=== PATIENT | male | born 1940 | race Caucasian/White ===

== ENCOUNTER 2016-08-06 14:45 | Inpatient (IN) | payer MEDICARE ==
[2016-08-06] MEDS ORDERED: Ciprofloxacin 400MG IVPREMIX(* 400 MG/200 ML BAG IVPB ONE (15:33)
[2016-08-06 16:18] LABS: Urine Bacteria Absent (Absent); Urine Bilirubin Negative (Negative); Urine Glucose Negative (Negative); Urine Nitrite Negative (Negative)
[2016-08-06 16:28] LABS: Hematocrit 24 % (42-52); Hemoglobin 8.1 g/dl (14.0-18.0); Mean Corpuscular HGB Conc 34 g/dl (31-36); Mean Corpuscular Hemoglobin 34 pg (27-31); Mean Corpuscular Volume 100 fL (80-94); Mean Platelet Volume 8 um3 (7.4-10.4); Red Cell Distribution Width 13 % (10.5-15)
[2016-08-06 17:05] LABS: Albumin 3.5 g/dL (3.2-5.2); BUN/Creatinine Ratio 8.7 (8-20); C Reactive Protein 22.77 mg/L (< 5.00); Calcium 8.8 mg/dL (8.6-10.3); EGFR African American 12.8 (>60); EGFR Non-African American 9.9 (>60); Globulin 2.9 g/dL (2-4); Magnesium 1.4 mg/dL (1.9-2.7); Potassium 4.4 mmol/L (3.5-5.0); Total Bilirubin 0.9 mg/dL (0.2-1.0); Total Protein 6.4 g/dL (6.4-8.9)
--- NOTE | 2016-08-06 17:05 | RAD ---
INDICATION: Edema COMPARISON: Chest x-ray November 12, 2006 TECHNIQUE: An AP portable view obtained at 1635 hours is submitted. FINDINGS: Bones/Soft Tissues: There are no acute bony findings. There are old left-sided rib fractures. There is sternotomy. Cardiomediastinal: The cardiomediastinal silhouette is normal. Lungs: Mild volume loss left chest with chronic pleural changes. Left-sided diaphragmatic calcifications. Pleura: There are no pleural effusions. Other: None IMPRESSION: CHRONIC PLEURAL AND PARENCHYMAL CHANGES LEFT HEMITHORAX. NO ACUTE FINDINGS.
[2016-08-06 17:06] LABS: Troponin I 0.03 ng/mL (<0.04)
[2016-08-06 17:11] LABS: TSH (Thyroid Stimulating Horm) 6.28 mcIU/mL (0.34-5.60)
[2016-08-06] MEDS ORDERED: Acetaminophen TAB* 325 MG PO PRN (18:09)
[2016-08-06] MEDS ORDERED: Magnesium Sulfate 2 GM IV* 2 GM/50 ML BAG IVPB ONE (19:13)
[2016-08-06] MEDS: NS 0.9% 1000 ML* 1,000 ML IV SCH (19:46)
[2016-08-06] MEDS ORDERED: Enoxaparin(*) 30 MG/0.3 ML SYR SUBCUT SCH (20:00)
[2016-08-06 20:18] LABS: Free T4 0.79 ng/dL (0.61-1.12)
--- NOTE | 2016-08-06 20:44 | HP ---
ADMISSION HISTORY AND PHYSICAL: DATE OF ADMISSION: 08/06/16 PRIMARY CARE PROVIDER: Unknown. UROLOGIST: Dr. Felipe. ADMITTING PROVIDER: LISA Jasmine. SUPERVISING PROVIDER: Austyn Mcneil MD.* (DICTATED BY LISA JASMINE) CHIEF COMPLAINT: Distended bladder, referred by Dr. Felipe. HISTORY OF PRESENT ILLNESS: This is a 76-year-old gentleman with a history of coronary artery disease status post CABG in 1975 as well as BPH and diet controlled diabetes who presented to Dr. eFlipe's office for a routine followup earlier today and was found to have significant urinary retention and referred to the emergency department for further evaluation. Williamson catheter was placed and a total of 3 L of urine was found to be in the bladder. The patient states that he has been largely asymptomatic despite this significant finding other than a bloated sensation. He has still been urinating frequently but noted a decreased flow. He denies any recent illnesses. Denies fevers, nausea, vomiting or diarrhea. Denies chest pain or difficulty breathing. He does have some intermittent lower extremity swelling over the last couple of months. The patient has been seen by Dr. Felipe in the past and undergone prostate biopsies in the past. It sounds like maybe at one point, he was also treated for prostatitis. Biopsies were benign, a diagnosis of BPH seemed to be appropriate. PAST MEDICAL HISTORY: 1. BPH. 2. Diet controlled diabetes. 3. Coronary artery disease, status post CABG, 1975. PAST SURGICAL HISTORY: 1. CABG, 1975. 2. Total knee arthroplasty. HOME MEDICATIONS: 1. Aspirin 325 mg p.o. daily. 2. Atorvastatin 20 mg p.o. daily. 3. Coenzyme Q10 at 400 mg p.o. daily. 4. Finasteride 5 mg p.o. daily. 5. Padroni-3 fatty acids 1000 mg p.o. daily. 6. Flomax 0.4 mg p.o. daily. SOCIAL HISTORY: The patient is . He quit smoking in 1982 with a 20- pack- year smoking history. He consumes between 1-1/2 and 2 bottles of wine nightly. He has had periods of sobriety without significant withdrawal. He recognizes that the volume is too great. Denies illicit drug use and lives alone. REVIEW OF SYSTEMS: As listed above in the HPI and otherwise negative. PHYSICAL EXAMINATION GENERAL: This is a pleasant elderly male in no acute distress, slightly unkempt appearance. VITAL SIGNS: Temperature 98.4 degrees Fahrenheit, pulse 76 beats per minute, respiratory rate of 18 per minute, oxygen saturation is 100% on room air, blood pressure 178/81 mmHg. HEENT: Head is normocephalic and atraumatic. Mucous membranes are pink and moist. Dentition is poor. RESPIRATORY: Lungs clear to auscultation without wheezes, crackles or rhonchi. CARDIOVASCULAR: Heart has a regular rate and rhythm without murmurs, rubs or gallops. ABDOMEN: Soft and nontender to palpation. PSYCH: The patient is alert and appropriately oriented. DIAGNOSTIC STUDIES/LAB DATA: CBC shows a white blood cell count of 4000, hemoglobin of 8.1 g/dL and platelet count of 124,000. Comprehensive metabolic panel is significant for sodium of 125 mmol/L, normal potassium of 4.4, serum bicarb of 18, anion gap of 16, BUN of 49, creatinine of 5.62. Random glucose of 112 mg/dL. Magnesium low at 1.4. Transaminases and total bilirubin within normal limits. Troponin is negative at 0.003. CRP 22.7. BNP mildly elevated at 461. TSH mildly elevated at 6.28. PSA surprisingly is only 1.3. Urinalysis is positive for 1+ blood and otherwise unremarkable. IMAGING: Chest x-ray shows some chronic pleural and parenchymal changes in the left hemithorax. No acute findings, however. ASSESSMENT AND PLAN: This is a 76-year-old gentleman with history of benign prostatic hyperplasia, diet controlled diabetes and coronary artery disease who presents with what sounds like chronic urinary retention secondary to benign prostatic hyperplasia as well as acute kidney failure. 1. Urinary retention. This is likely chronic in nature based on his symptoms and history and secondary to benign prostatic hyperplasia. No signs of urinary tract infection based on urinalysis. Williamson catheter is in place. Urine appears bloody at this time, likely due to traumatic catheterization based on the size of his prostate. I anticipate that the patient will likely require a Williamson catheter indefinitely. He has been on Flomax and finasteride for quite sometime and has been compliant with these medications. 2. Acute kidney failure. Added on urine sodium and creatinine to help calculate FENa but assume that his acute kidney failure is secondary to distal obstruction and subsequent urinary retention. We will avoid nephrotoxic agents, provide light IV hydration and recheck labs in the morning. 3. Hypomagnesemia. We will replace IV. 4. Elevated TSH. We will plan to check a free T4 and likely start low dose of levothyroxine. 5. Diet controlled diabetes. We will check hemoglobin A1c and if within normal limits, the patient does not require glucose monitoring during his hospital stay. 6. History of coronary artery disease without acute coronary syndrome. Continue aspirin and statin. 7. Code status. The patient is full code. 8. DVT prophylaxis. The patient will be started on heparin subcu. We will avoid enoxaparin in the setting of acute kidney failure. 9. Healthcare proxy is unknown. 10. Disposition. The patient is being admitted to the hospital for acute kidney injury and urinary retention. Anticipated length of stay is greater than 2 midnights. LISA JASMINE CC: Dr. Felipe* [id number]/[facility] #: [id number] MTDD
[2016-08-06] MEDS: Heparin VIAL(*) 5000 UNITS/ML VIAL (FIVE THOUSAND) SUBCUT SCH (23:39)
--- NOTE | 2016-08-07 00:06 | ED ---
IWilbur,Lani, scribed for Richard Brown MD on 08/06/16 at 1538 . GI/ HPI - HPI Summary HPI Summary: This 76 y/o male presents to ED from Dr. Felipe's office for 3 L of fluid in bladder that was noted today in office. Brother present at bedside also reports worsening PVD at BLE with increased swelling and difficulty with ambulation. Pt himself denies any abd pain, dysuria, or leg pain, but reports decreased urinary output when he does go to urinate and BLE weakness. He was at Dr. Felipe's office for f/u appointment for his prostatitis. 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 Pt admits that he hasn't been consistent with following up for diuretic medications due to trouble getting to Dr. Felipe's office. - History of Current Complaint Stated Complaint: BOTH LEGS SWOLLEN/UNABLE TO WALK Hx Obtained From: Patient, Family/[employer] Controls Engineer - brother present at bedside, Medical Records Onset/Duration: Started Days Ago, Atraumatic, Still Present Timing: Constant Severity: Mild Current Severity: Moderate Location of Pain: None Associated Signs and Symptoms: Positive: Other: - Abd bloating. Decreased urinary output when urinates. Negative: Fever, Dysuria, Abdominal Pain, Chest Pain - Allergy/Home Medications Allergies/Adverse Reactions: Allergies Allergy/AdvReac Type Severity Reaction Status Date / Time No Known Allergies Allergy Verified 07/29/13 10:04 Home Medications: Home Medications Aspirin TAB* 325 mg PO DAILY 08/06/16 [History Confirmed 08/06/16] Atorvastatin* [Lipitor*] 20 mg PO DAILY 08/06/16 [History Confirmed 08/06/16] Coenzyme Q10 (Ubidecarenone) [Co Q-10] 400 mg PO DAILY 08/06/16 [History Confirmed 08/06/16] Finasteride TAB* [Proscar TAB*] 5 mg PO DAILY 08/06/16 [History Confirmed ] Diamond-3 Fatty Acids (Nf) [Fish Oil (NF)] 1,000 mg PO DAILY 08/06/16 [History Confirmed 08/06/16] Tamsulosin CAP* [Flomax CAP*] 0.4 mg PO DAILY 08/06/16 [History Confirmed ] PMH/Surg Hx/FS Hx/Imm Hx Endocrine/Hematology History: Denies: Hx Diabetes Cardiovascular History: Reports: Hx Hypertension - ON MEDS Denies: Hx Pacemaker/ICD History: Denies: Hx Renal Disease Sensory History: Denies: Hx Hearing Aid Psychiatric History: Denies: Hx Panic Disorder - Surgical History Surgery Procedure, Year, and Place: 1989 ACOUSTIC NEOROMA ON RIGHT, CABG 11/1977 SINGLE BYPASS, KNEE REPLACEMENT 2007 RIGHT, HERNIA 2001 - Family History Known Family History: Positive: Diabetes - Social History Alcohol Use: None Hx Substance Use: No Substance Use Type: Reports: None Hx Tobacco Use: No Smoking Status (MU): Never Smoked Tobacco Review of Systems Negative: Fever Positive: Other - right eye with more droop than left eye, chronic. Negative: Erythema Positive: Other - right ear without hearing. Negative: Sore Throat Negative: Chest Pain Positive: Cough - mild, nonproductive Positive: Other - abd bloating. Negative: Abdominal Pain Positive: other - decreased urinary output. Negative: dysuria, pain Positive: Other - Venous changes with BLE ankle secondary to PVD. Negative: Myalgia Negative: Rash Positive: Weakness - trouble walking Negative: Anxious, Depressed All Other Systems Reviewed And Are Negative: Yes Physical Exam - Summary Physical Exam Summary: Constitutional: Well-developed, Well-nourished, Alert. (-) Distressed Skin: Warm, Dry HENT: Normocephalic; Atraumatic. Right ear without hearing. Eyes: Conjunctiva normal. (+) Right eye with chronic ptosis. Neck: Musculoskeletal ROM normal neck. (-) JVD, (-) Stridor, (-) Tracheal deviation Cardio: Rhythm regular, rate normal, Heart sounds normal; Intact distal pulses; The pedal pulses are 2+ and symmetric. Radial pulses are 2+ and symmetric. (-) Murmur Pulmonary/Chest wall: Effort normal. (-) Respiratory distress, (-) Wheezes, (-) Rales Abd: Soft, (-) Tenderness, (+) Gross distension at bladder, (-) Guarding, (-) Rebound Musculoskeletal: (-) Edema. (+) Changes with venous stasis at BLE. Lymph: (-) Cervical adenopathy Neuro: Alert, Oriented x3 Psych: Mood and affect Normal Triage Information Reviewed: Yes Vital Signs Reviewed: Yes Diagnostics - Laboratory Result Diagrams: 08/06/16 16:15 08/06/16 16:15 Lab Statement: Any lab studies that have been ordered have been reviewed, and results considered in the medical decision making process. - Radiology CXR Xray Interpretation: No Acute Changes - CHRONIC PLEURAL AND PARENCHYMAL CHANGES LEFT HEMITHORAX. NO ACUTE FINDINGS. Radiology Interpretation Completed By: Radiologist RISA Course/Dx - Course Assessment/Plan: This 76 y/o male presents to ED after his bladder is noted with [address] Felipe's office earlier this morning. Pt denies any abd pain except for "some bloating". Brother expresses concern about pt's worsening PVD and difficulty ambulating this morning. PMHx includes HTN and prostatitis per pt, but pt reports noncompliant to f/u with Dr. Felipe's office. Blood work indicates elevated creatinine of 5.62, BNP of 461, and CRP of 22.77. CXR shows chronic but no acute findings. Physical exam findings and bloodwork is shared with Dr. Felipe, who recommends 2/3 fluid replacement as well as concerns for obstructive renal failure and HTN. - Diagnoses Provider Diagnoses: CHF (congestive heart failure), Peripheral edema, Uremia, renal failure secondary to obstruction - Physician Notifications Discussed Care Of Patient With: Dr. Felipe (Urologist) at 1744 PM - Pt has not been in Dr. Felipe's office for 1+ years. recommends replacing 2/3 fluid output and be aware of post-obstructive renal failure and HTN. Dr. Mcneil ( Hospitlaist) at 1804 PM Time Discussed With Above Provider: 17:44 Discharge - Discharge Plan Condition: Stable Disposition: ADMITTED TO [facility] Referrals: Anthony Felipe MD [Primary Care Provider] - The documentation as recorded by the Wilbur vallecillo Soohyun accurately reflects the service I personally performed and the decisions made by , Richard Brown MD.
[2016-08-07] MEDS: Heparin VIAL(*) 5000 UNITS/ML VIAL (FIVE THOUSAND) SUBCUT SCH ×3 (05:22→21:42)
[2016-08-07 05:58] LABS: Hematocrit 22 % (42-52); Hemoglobin 7.3 g/dl (14.0-18.0); Mean Corpuscular HGB Conc 34 g/dl (31-36); Mean Corpuscular Hemoglobin 33 pg (27-31); Mean Corpuscular Volume 99 fL (80-94); Mean Platelet Volume 8 um3 (7.4-10.4); Red Blood Count 2.18 10^6/ul (4.0-5.4); Red Cell Distribution Width 13 % (10.5-15); White Blood Count 2.8 10^3/ul (3.5-10.8)
[2016-08-07 06:05] LABS: Add Diff/Slide Review? Slide Review Added; Comments Flag Yes
[2016-08-07 06:08] LABS: BUN/Creatinine Ratio 10.6 (8-20); Calcium 8.5 mg/dL (8.6-10.3); EGFR African American 17.3 (>60); EGFR Non-African American 13.4 (>60)
[2016-08-07] MEDS: Atorvastatin* 20 MG TAB PO SCH (08:45)
[2016-08-07] MEDS: Aspirin TAB* 325 MG PO SCH (08:45)
[2016-08-07] MEDS: Finasteride TAB* 5 MG PO SCH (08:45)
[2016-08-07] MEDS: Tamsulosin CAP* 0.4 MG PO SCH (08:45)
[2016-08-07] MEDS ORDERED: Influenza VAC *QUAD* 2016-17* 0.5 ML SYRINGE IM ONE (09:00)
[2016-08-07] MEDS ORDERED: Pneumococcal *Vac Polyvalent 0.5 ML VIAL IM ONE (09:00)
[2016-08-07] MEDS: NS 0.9% 1000 ML* 1,000 ML IV SCH ×2 (10:23→23:38)
[2016-08-07] MEDS: Magnesium Oxide TAB* 400 MG PO SCH (12:52)
[2016-08-07 13:03] LABS: Comments Flag Yes; Hematocrit 21 % (42-52); Hemoglobin 7.2 g/dl (14.0-18.0)
[2016-08-07 13:09] LABS: Immature Retic Fraction 0.38
[2016-08-07 13:10] LABS: Corrected Retic Count 0.7 % (0.5-1.5)
[2016-08-07 13:37] LABS: Ferritin 511.7 ng/mL (24-336)
[2016-08-07 13:41] LABS: Folate 2.72 ng/mL (>3.99)
--- NOTE | 2016-08-07 15:25 | PN ---
Subjective Date of Service: 08/07/16 Interval History: Pt's hematuria after Williamson placement is slowly resolving.no new complaints. Objective Active Medications: Acetaminophen (Tylenol Tab*) 650 mg PO Q4H PRN PRN Reason: FEVER/PAIN Aspirin (Aspirin Tab*) 325 mg PO DAILY [facility] Last Admin: 08/07/16 08:45 Dose: 325 mg Atorvastatin Calcium (Lipitor*) 20 mg PO DAILY [facility] Last Admin: 08/07/16 08:45 Dose: 20 mg Finasteride (Proscar Tab*) 5 mg PO DAILY [facility] Last Admin: 08/07/16 08:45 Dose: 5 mg Heparin Sodium (Porcine) (Heparin Vial(*)) 5,000 units SUBCUT Q8HR [facility] Last Admin: 08/07/16 12:22 Dose: Not Given Sodium Chloride (Ns 0.9% 1000 Ml*) 1,000 mls @ 75 mls/hr IV PER RATE [facility] Last Admin: 08/07/16 10:23 Dose: 75 mls/hr Magnesium Oxide (Magox 400 Tab*) 800 mg PO DAILY [facility] Last Admin: 08/07/16 12:52 Dose: 800 mg Tamsulosin HCl (Flomax Cap*) 0.4 mg PO DAILY [facility] Last Admin: 08/07/16 08:45 Dose: 0.4 mg Vital Signs 08/06/16 08/06/16 08/06/16 20:35 20:38 23:22 Temperature 98.4 F 98.4 F Pulse Rate 82 86 Respiratory 18 18 18 Rate Blood Pressure 155/73 142/70 (mmHg) O2 Sat by Pulse 100 100 Oximetry 08/07/16 08/07/16 08/07/16 03:55 07:51 08:00 Temperature 97.1 F 97.8 F Pulse Rate 83 82 Respiratory 18 16 18 Rate Blood Pressure 132/60 124/91 (mmHg) O2 Sat by Pulse 99 100 Oximetry 08/07/16 11:17 Temperature 97.9 F Pulse Rate 86 Respiratory Rate Blood Pressure 151/70 (mmHg) O2 Sat by Pulse 99 Oximetry Oxygen Devices in Use Now: None Appearance: 76 yo m in nAd, aAOx3, poor historian Eyes: No Scleral Icterus, PERRLA Ears/Nose/Mouth/Throat: NL Teeth, Lips, Gums, Mucous Membranes Moist Neck: NL Appearance and Movements; NL JVP, Trachea Midline Respiratory: Symmetrical Chest Expansion and Respiratory Effort, Clear to Auscultation Cardiovascular: NL Sounds; No Murmurs; No JVD, RRR Abdominal: NL Sounds; No Tenderness; No Distention, No Hepatosplenomegaly Lymphatic: No Cervical Adenopathy Extremities: No Clubbing, Cyanosis, - - trace pedal edema b/l Skin: No Rash or Ulcers, No Nodules or Sclerosis Neurological: Alert and Oriented x 3, - - r facial droop -chronic Result Diagrams: 08/07/16 12:51 08/07/16 05:47 Assess/Plan/Problems-Billing Assessment: 76 yo M with h/o BPH, 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 Thomas) presents with urinary retention - Patient Problems (1) Urinary retention due to benign prostatic hyperplasia Comment: suspect BPH, although further outpatient eval by urology is warranted. Cont Williamson to gravity 3 L of urine residual obtained in ED cont Flomax/Proscar (2) Hematuria Comment: post traumatic, resolving (3) Dyslipidemia Comment: cont statin (4) Macrocytic anemia Comment: appears to be due to chronic kidney disease. Unknown baseline will tx with a dose of Epogen (5) Acute renal failure Comment: suspect underlying CKD improving with IVF and Williamson due to acute obstruction will obtain renal US (6) DVT prophylaxis Comment: heparin sc Status and Disposition: inpatient for acute renal failure, anemia
[2016-08-07] MEDS ORDERED: Epoetin Alfa* 10,000 UNITS/ML VIAL SUBCUT ONE (15:45)
--- NOTE | 2016-08-07 19:10 | RAD ---
INDICATION: Acute renal failure. Evaluate for hydronephrosis. COMPARISON: None TECHNIQUE: Longitudinal and transverse scans of the kidneys and bladder were obtained. FINDINGS: Kidneys: The kidneys are normal in size and echogenicity. No renal masses, calculi, or wei hydronephrosis is seen. However, there is mild, bilateral caliectasis. This may be related to a distended urinary bladder. The right kidney measures 12.3 x 5.3 x 6.4 cm and the left kidney 13.5 x 5.9 x 5.6 cm. Bladder: The bladder is distended. There is a Williamson catheter which presumably is unclamped. There is clot/debris surrounding the Williamson catheter which may be partially blocking the catheter. There is mild bladder wall trabeculation. The prevoid volume is 574 mL. Neither ureteral jet is documented. Other: None IMPRESSION: MILD BILATERAL CALIECTASIS WHICH MAY BE RELATED TO THE DISTENDED URINARY BLADDER. THE CATHETER MAY REQUIRE IRRIGATION.
[2016-08-08 06:08] LABS: Hematocrit 18 % (42-52); Mean Corpuscular HGB Conc 34 g/dl (31-36); Mean Corpuscular Hemoglobin 33 pg (27-31); Mean Corpuscular Volume 98 fL (80-94); Mean Platelet Volume 8 um3 (7.4-10.4); Red Cell Distribution Width 13 % (10.5-15)
[2016-08-08 06:10] LABS: Comments Flag Yes
[2016-08-08 06:12] LABS: Add Diff/Slide Review? Slide Review Added
[2016-08-08 06:31] LABS: BUN/Creatinine Ratio 13.2 (8-20); Calcium 8.1 mg/dL (8.6-10.3); EGFR African American 30.3 (>60); EGFR Non-African American 23.6 (>60); Magnesium 1.4 mg/dL (1.9-2.7); Potassium 3.7 mmol/L (3.5-5.0)
[2016-08-08] MEDS: Heparin VIAL(*) 5000 UNITS/ML VIAL (FIVE THOUSAND) SUBCUT SCH (07:20)
[2016-08-08] MEDS ORDERED: Magnesium Sulfate 2 GM IV* 2 GM/50 ML BAG IVPB ONE ×2 (08:04→12:30)
[2016-08-08] MEDS ORDERED: Magnesium Hydroxide LIQ* 30 ML UDC PO ONE (08:23)
[2016-08-08] MEDS: Finasteride TAB* 5 MG PO SCH (08:36)
[2016-08-08] MEDS: Atorvastatin* 20 MG TAB PO SCH (08:36)
[2016-08-08] MEDS: Tamsulosin CAP* 0.4 MG PO SCH (08:36)
[2016-08-08] MEDS: Magnesium Oxide TAB* 400 MG PO SCH (08:36)
[2016-08-08] MEDS: Aspirin TAB* 325 MG PO SCH (08:36)
--- NOTE | 2016-08-08 14:31 | PN ---
Subjective Date of Service: 08/08/16 Interval History: Pt feels well. Hb down to 6 today, denies BRBPR or melena Objective Active Medications: Acetaminophen (Tylenol Tab*) 650 mg PO Q4H PRN PRN Reason: FEVER/PAIN Aspirin (Aspirin Tab*) 325 mg PO DAILY [facility] Last Admin: 08/08/16 08:36 Dose: 325 mg Atorvastatin Calcium (Lipitor*) 20 mg PO DAILY [facility] Last Admin: 08/08/16 08:36 Dose: 20 mg Finasteride (Proscar Tab*) 5 mg PO DAILY [facility] Last Admin: 08/08/16 08:36 Dose: 5 mg Magnesium Oxide (Magox 400 Tab*) 800 mg PO DAILY [facility] Last Admin: 08/08/16 08:36 Dose: 800 mg Tamsulosin HCl (Flomax Cap*) 0.4 mg PO DAILY [facility] Last Admin: 08/08/16 08:36 Dose: 0.4 mg Vital Signs 08/07/16 08/07/16 08/07/16 16:04 19:43 20:00 Temperature 97.8 F 98.7 F Pulse Rate 92 98 Respiratory 16 18 Rate Blood Pressure 139/71 135/66 (mmHg) O2 Sat by Pulse 100 100 Oximetry 08/07/16 08/08/16 08/08/16 23:43 07:38 08:00 Temperature 99.6 F 98.4 F Pulse Rate 99 88 Respiratory 18 16 Rate Blood Pressure 135/63 137/62 (mmHg) O2 Sat by Pulse 95 97 Oximetry 08/08/16 08/08/16 08/08/16 08:58 09:13 11:47 Temperature 97.9 F 97.7 F 98.3 F Pulse Rate 87 91 84 Respiratory 16 16 16 Rate Blood Pressure 155/68 143/66 140/73 (mmHg) O2 Sat by Pulse 100 99 99 Oximetry Oxygen Devices in Use Now: None Appearance: 76 yo M in NAD, AAOx3, poor historian Eyes: No Scleral Icterus, PERRLA Ears/Nose/Mouth/Throat: NL Teeth, Lips, Gums, Mucous Membranes Moist Neck: NL Appearance and Movements; NL JVP, Trachea Midline Respiratory: Symmetrical Chest Expansion and Respiratory Effort, Clear to Auscultation Cardiovascular: NL Sounds; No Murmurs; No JVD, RRR Abdominal: NL Sounds; No Tenderness; No Distention, No Hepatosplenomegaly Lymphatic: No Cervical Adenopathy Extremities: No Clubbing, Cyanosis, - - trace pedel edema b/l and chronic venous staisis skin changes in distal LE's Skin: No Nodules or Sclerosis Neurological: Alert and Oriented x 3, - - R facial droop-chronic Result Diagrams: 08/08/16 05:20 08/08/16 05:20 Assess/Plan/Problems-Billing Assessment: 76 yo M with h/o BPH, 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 Thomas) presents with urinary retention - Patient Problems (1) Urinary retention due to benign prostatic hyperplasia Comment: suspect BPH, although further outpatient eval by urology is warranted. Cont Williamson to gravity 3 L of urine residual obtained in ED cont Flomax/Proscar (2) Hematuria Comment: post traumatic, resolving (3) Dyslipidemia Comment: cont statin (4) Macrocytic anemia Comment: appears to be due to chronic kidney disease. Also pt admits to drinking 1.5 bottle of wine a day. Pancytopenia is most likley related to chronic ETOH abouse. tx with a dose of Epogen on 07/14/24 today Hb down to 6-suspect hemodilution, will transfuse 1 U PRBC. Pt refused rectal exam, but also denies melena or BRBPR. Awaiting guaiac (5) Acute renal failure Comment: suspect underlying CKD improving with IVF and Williamson due to acute obstruction renal US shows distended bladder and pelviectasis. Will flush Williamson (6) Pancytopenia Comment: likely due to chronic ETOH use Vit B12>400 Pt may need heme w/up if not improved in 1-2 weeks. (7) TSH elevation Comment: mild, with normal FT4 Labs to be repeated in 4 weeks. (8) Hypomagnesemia Comment: suspect due to ETOH use replacing PO/IV (9) Alcohol abuse Comment: counseled aboout the harms of ETOH abuse. SW consult pending No symptoms of withdrawal (10) DVT prophylaxis Comment: heparin sc held due to hematuria SCD's Status and Disposition: inpatient for acute renal failure, anemia
--- NOTE | 2016-08-09 00:16 | CONS ---
CONSULTATION NOTE: DATE OF CONSULTATION: 08/08/16 PROCEDURE: Replacement of Williamson catheter. Irrigation of clot retention. HISTORY OF PRESENT ILLNESS: Mr. Escobedo is a 76-year-old white male whom I have been following for several years because of symptoms of bladder outlet obstruction and prostate enlargement. He has been maintained on tamsulosin and on finasteride. I had last seen him in my office about 18 months ago. At that time he was doing well, was having nocturia about twice, and day frequency 4 to 5 times. His postvoid residual at that time was about 100 cc. He was advised to continue on his medications and to come back for a follow-up visit 6 months later. The patient did not present to my office until 08/06/16 for his outine visit. He came mostly to renew his medications. Upon taking his history, he reported increasing voiding symptoms with day frequency about every 1 to 2 hours with very slow stream and a feeling of incomplete bladder emptying. He also was having episodes of urinary incontinence at night. He denied any gross hematuria or urinary tract infections. Upon examination in the office, he was found to have a markedly distended bladder reaching midway between the umbilicus and the xiphoid. There was significant edema involving his both lower extremities all the way to the groins. There was also edema of the scrotum. The patient looked pale and more frail, poor hygiene, than on his last visit to my office. For further evaluation of his kidneys, he had bilateral renal ultrasound in the office. This study showed mild bilateral hydronephrosis. The bladder ultrasound showed a residual in excess of 2.5 L. Because of those findings, the patient was sent to the emergency room and I discussed his conditions with the emergency room physician. His lab work in the emergency room showed an elevated serum creatinine of 5.6 and he was noted to be markedly anemic with a hemoglobin of 8. He had a Williamson catheter placed and 3.5 L of clear urine drained. The patient was admitted for management. He developed postobstructive diuresis and his serum creatinine today was down to 2.7. Following replacement of the Williamson catheter, the patient developed gross hematuria, which is often times seen after draining a markedly distended bladder. He had a bladder ultrasound, which showed it to be markedly distended , indicating that the Williamson catheter was occluded. His Williamson was irrigated by the nursing staff with improvement of his drainage. I came to see him again today. The urine was still bloody. I replaced the Williamson catheter with a 22- Dutch Williamson. I irrigated his bladder and a total of about 50 cc of clots were evacuated. At the completion of the irrigation, the returns were pink and there were no blood clots noted. He was kept on catheter drainage. Today, his hemoglobin was down to 6 and he was given a transfusion. The cause of the anemia is being investigated and it could be related to his renal failure or to his history of alcohol intake, especially that macrocytic anemia was noted. At the present time, the patient seems to be significantly improving on catheter drainage. The plan for his urological care is to keep him on catheter drainage until his renal function is optimized. He will then need to have a cystoscopy and urodynamic studies as an outpatient in the office, and decision will be made regarding whether he is a candidate for transurethral resection of the prostate. [id number]/[facility] #: [id number] SEBASTIAN
[2016-08-09 06:19] LABS: Hematocrit 20 % (42-52); Hemoglobin 6.6 g/dl (14.0-18.0); Mean Corpuscular HGB Conc 34 g/dl (31-36); Mean Corpuscular Hemoglobin 32 pg (27-31); Mean Corpuscular Volume 94 fL (80-94); Mean Platelet Volume 8 um3 (7.4-10.4); Red Blood Count 2.07 10^6/ul (4.0-5.4); Red Cell Distribution Width 16 % (10.5-15); White Blood Count 3.6 10^3/ul (3.5-10.8)
[2016-08-09 06:26] LABS: Comments Flag Yes
[2016-08-09 06:40] LABS: BUN/Creatinine Ratio 14.1 (8-20); EGFR African American 42.6 (>60); EGFR Non-African American 33.1 (>60); Magnesium 1.4 mg/dL (1.9-2.7); Potassium 3.8 mmol/L (3.5-5.0)
[2016-08-09] MEDS: Finasteride TAB* 5 MG PO SCH (08:43)
[2016-08-09] MEDS: Tamsulosin CAP* 0.4 MG PO SCH (08:43)
[2016-08-09] MEDS: Atorvastatin* 20 MG TAB PO SCH (08:44)
[2016-08-09] MEDS: Magnesium Oxide TAB* 400 MG PO SCH ×2 (08:45→20:43)
[2016-08-09] MEDS ORDERED: Magnesium Sulfate IV* 3 GM in NS 0.9% 100 ML* 100 ML IVPB ONE (09:19)
[2016-08-09] MEDS ORDERED: NS 0.9% 100 ML* 100 ML ONE (09:44)
[2016-08-09] MEDS ORDERED: Magnesium CITRATE* 300 ML BTL PO ONE (11:28)
--- NOTE | 2016-08-09 14:25 | PN ---
Subjective Date of Service: 08/09/16 Interval History: Pt feels well. Hematuria still present Objective Active Medications: Acetaminophen (Tylenol Tab*) 650 mg PO Q4H PRN PRN Reason: FEVER/PAIN Atorvastatin Calcium (Lipitor*) 20 mg PO DAILY [facility] Last Admin: 08/09/16 08:44 Dose: 20 mg Finasteride (Proscar Tab*) 5 mg PO DAILY [facility] Last Admin: 08/09/16 08:43 Dose: 5 mg Magnesium Oxide (Magox 400 Tab*) 800 mg PO BID [facility] Tamsulosin HCl (Flomax Cap*) 0.4 mg PO DAILY [facility] Last Admin: 08/09/16 08:43 Dose: 0.4 mg Vital Signs 08/08/16 08/08/16 08/08/16 15:13 20:00 21:49 Temperature 98.2 F 98.2 F Pulse Rate 84 83 Respiratory 20 20 16 Rate Blood Pressure 136/70 148/77 (mmHg) O2 Sat by Pulse 99 99 Oximetry 08/08/16 08/09/16 08/09/16 23:23 07:33 08:00 Temperature 98.0 F Pulse Rate 89 91 Respiratory 16 18 18 Rate Blood Pressure 146/74 139/71 (mmHg) O2 Sat by Pulse 98 98 Oximetry 08/09/16 08/09/16 08/09/16 08:15 12:42 13:59 Temperature 98.5 F 97.7 F Pulse Rate 76 80 Respiratory 16 16 Rate Blood Pressure 136/73 128/63 (mmHg) O2 Sat by Pulse 100 Oximetry Oxygen Devices in Use Now: None Appearance: 76 yo M in nAd, aAOx3 Eyes: No Scleral Icterus, PERRLA Ears/Nose/Mouth/Throat: NL Teeth, Lips, Gums, Mucous Membranes Moist Neck: NL Appearance and Movements; NL JVP, Trachea Midline Respiratory: Symmetrical Chest Expansion and Respiratory Effort, Clear to Auscultation Cardiovascular: NL Sounds; No Murmurs; No JVD, RRR Abdominal: NL Sounds; No Tenderness; No Distention, No Hepatosplenomegaly Lymphatic: No Cervical Adenopathy Extremities: No Edema, No Clubbing, Cyanosis Skin: - - +1 b/l leg edema Neurological: Alert and Oriented x 3, - - R facial droop Result Diagrams: 08/09/16 05:42 08/09/16 05:42 Assess/Plan/Problems-Billing Assessment: 76 yo M with h/o BPH, 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 Thomas) presents with urinary retention - Patient Problems (1) Urinary retention due to benign prostatic hyperplasia Comment: suspect BPH, although further outpatient eval by urology is warranted. appreciate Urology consult Cont Williamson to gravity 3 L of urine residual obtained in ED cont Flomax/Proscar (2) Hematuria Comment: post traumatic, resolving (3) Dyslipidemia Comment: cont statin (4) Macrocytic anemia Comment: appears to be due to chronic kidney disease. Also pt admits to drinking 1.5 bottle of wine a day. Pancytopenia is most likely related to chronic ETOH abouse. He has hematuria, but it appears disproportional to concurrent anemia. tx with a dose of Epogen on 08/07/15 s/p 1 u PRBC transfused on 08/08/16, still low Hb today. Will transfuse 2 U PRBC , ask hematology (D/w Dr. Coates) to see pt. Pt refused rectal exam, but also denies melena or BRBPR. Awaiting guaiac (5) Acute renal failure Comment: suspect underlying CKD improving due to acute obstruction renal US showed distended bladder and pelviectasis Williamson flushed on 08/08/16 with good urine output. (6) Pancytopenia Comment: likely due to chronic ETOH use Vit B12>400 (7) TSH elevation Comment: mild, with normal FT4 Labs to be repeated in 4 weeks. (8) Hypomagnesemia Comment: suspect due to ETOH use replacing PO/IV (9) Alcohol abuse Comment: counseled aboout the harms of ETOH abuse. SW consult pending No symptoms of withdrawal (10) DVT prophylaxis Comment: heparin sc held due to hematuria SCD's Status and Disposition: inpatient for acute renal failure, anemia
--- NOTE | 2016-08-09 16:30 | CONS ---
AMENDED REPORT NOW INCLUDES DATE OF CONSULT CONSULTATION REPORT: DATE OF CONSULT/DICTATION: 08/09/16 REFERRING PHYSICIAN: Dr. Moore. REASON FOR CONSULT: Refractory anemia. HISTORY OF PRESENT ILLNESS: This is a 76-year-old gentleman with history of coronary artery disease and BPH as well as diabetes. He was seen in Dr. Felipe's office for routine followup and was found to have significant urinary retention. 3 L urine and a Williamson was placed. He has some frequency and low flow, but otherwise no pain associated with his retention. He denied any recent acute illness. He has been very weak and he said he has gotten so weak that he was having a hard time walking and a friend had to help take him to Dr. Felipe's office. The patient's weight has been low, his weight of 210 was surprisingly low to him. He is having approximately one bowel movement per week. No diarrhea or blood in his stool. From Dr. Felipe's office, he was sent to the emergency room for chronic urinary retention and acute renal failure. On laboratory evaluation in the emergency room, he was found to have a creatinine of 5.2 on 08/06/16, up from a baseline of 0.77, essentially normal liver function with an albumin of 3.3, normal INR 0.87. He had a CBC that showed a hemoglobin of 8.1, MCV of 100, RDW 13 with platelets of 124, and a white count of 4.0, and essentially normal differential. He had a retic count sent of 0.14, corrected 0.7. With hydration in the hospital to treat his renal failure, his hemoglobin subsequently declined from 8.1 to 6.0 on the . He got 1 unit of packed red blood cells on and went to hemoglobin of 6.6. Platelets, white count had been stable during the admission. He denies any specific symptoms of anemia bar the weakness and difficulty with mobility. He has bleeding, any hematuria. He has no fevers, chills, or night sweats, no swollen glands or lymph nodes. Further studies included B12 of 405, ferritin of 511, and iron saturation of 57% . He had a urine without hematuria. Renal function has been improving, it is 1.98 today. PAST MEDICAL HISTORY: 1. Coronary artery disease. Status post single-vessel bypass, 1975. 2. History of acoustic neuroma. 3. Acute renal failure. 4. BPH and urinary retention. PAST SURGICAL HISTORY: In addition to the heart surgery, he had a knee replacement. SOCIAL HISTORY: He is . He has 2 children and 3 grandchildren. Quit smoking in 1982. He does drink 1 to 2 bottles of wine each night. He has not had withdrawal seizures in the past. He stopped drinking coming into the hospital. REVIEW OF SYSTEMS: General: Weakness, fatigue. No fever, chills, night sweats. He thinks he has lost weight but he is not sure. Pulmonary: Negative. Cardiac: Negative except for history of heart disease. GI: Anorexia, infrequent bowel movements, and constipation. : As noted above. Musculoskeletal: Some knee pain, joint pain, generally, just very weak. Neurologic: Denies any focal symptoms. Skin: No history of rashes. PHYSICAL EXAM: BP 139/71, pulse 98, respirations 19, heart rate 91, temperature 98.5. HEENT: Conjunctivae pale. He has some dental disease. No oral lesions. No cervical or supraclavicular lymphadenopathy. Lungs: Clear to auscultation. Heart: Regular rate and rhythm, S1 and S2. No murmurs or gallops. Abdomen: Nontender, nondistended and no palpable spleen. No palpable liver edge. Nodes: No peripheral lymphadenopathy. Skin: Full exam deferred. There are no clear rashes, lesions, or bruising on top. Neurologic: Oriented x3. Strength is 5/5 throughout. DIAGNOSTIC STUDIES/LAB DATA: Labs as noted above. He had a renal ultrasound, bilateral caliectasis. ASSESSMENT AND PLAN: A 76-year-old male who comes in with marked anemia. Differential for the anemia includes acute renal failure, bone marrow suppression secondary to alcohol, no evidence of nutritional deficiency, could have intrinsic marrow defect or infiltrative disease, but less likely. Blood film shows acanthocytosis, normal white blood cells, heterogeneous platelet population. No schistocytes, no blasts, and no clear dysplasia. 1. We will check additional blood work today. Send serum protein electrophoresis and erythropoietin level. 2. Do not recommend additional transfusion at this time and he does not appear overtly symptomatic, would be nice to see if his body improves on its own. 3. He stopped drinking at this time and I agree he should not drink again. It can take 1 to 2 weeks before his marrow rebounds from alcohol-induced myelosuppression. 4. We discussed the bone marrow biopsy, but I do not it is necessary at this time because we have enough external factors suppressing blood formation to account for his cytopenias. 5. We are going to continue to follow while he is in the hospital and that he will need to see us as well on discharge. I suspect his counts will ultimately rise from where they are today, but not into the normal range, and further evaluation may be warranted in the future. 6. Will need social support with Alcoholics Anonymous, so he does not start drinking again on discharge. [id number]/[facility] #: [id number] SEBASTIAN
[2016-08-10 07:52] LABS: Hematocrit 26 % (42-52); Hemoglobin 8.7 g/dl (14.0-18.0); Mean Corpuscular HGB Conc 34 g/dl (31-36); Mean Corpuscular Hemoglobin 32 pg (27-31); Mean Corpuscular Volume 93 fL (80-94); Mean Platelet Volume 8 um3 (7.4-10.4); Red Blood Count 2.75 10^6/ul (4.0-5.4); Red Cell Distribution Width 16 % (10.5-15); White Blood Count 4.5 10^3/ul (3.5-10.8)
[2016-08-10 08:10] LABS: BUN/Creatinine Ratio 14.5 (8-20); Calcium 8.3 mg/dL (8.6-10.3); EGFR African American 57.8 (>60); EGFR Non-African American 44.9 (>60); Magnesium 1.7 mg/dL (1.9-2.7); Potassium 3.7 mmol/L (3.5-5.0)
[2016-08-10] MEDS: Finasteride TAB* 5 MG PO SCH (09:04)
[2016-08-10] MEDS: Tamsulosin CAP* 0.4 MG PO SCH (09:04)
[2016-08-10] MEDS: Atorvastatin* 20 MG TAB PO SCH (09:05)
[2016-08-10] MEDS: Magnesium Oxide TAB* 400 MG PO SCH ×2 (09:05→20:34)
[2016-08-10 15:29] LABS: Erythropoietin 73.5 mIU/mL (2.6 - 18.5)
[2016-08-10] MEDS ORDERED: Magnesium Sulfate 2 GM IV* 2 GM/50 ML BAG IVPB ONE (15:39)
--- NOTE | 2016-08-10 15:39 | PN ---
Subjective Date of Service: 08/10/16 Interval History: pt feels better. Hematuria still persists Objective Active Medications: Acetaminophen (Tylenol Tab*) 650 mg PO Q4H PRN PRN Reason: FEVER/PAIN Atorvastatin Calcium (Lipitor*) 20 mg PO DAILY [facility] Last Admin: 08/10/16 09:05 Dose: 20 mg Finasteride (Proscar Tab*) 5 mg PO DAILY [facility] Last Admin: 08/10/16 09:04 Dose: 5 mg Magnesium Oxide (Magox 400 Tab*) 800 mg PO BID [facility] Last Admin: 08/10/16 09:05 Dose: 800 mg Tamsulosin HCl (Flomax Cap*) 0.4 mg PO DAILY [facility] Last Admin: 08/10/16 09:04 Dose: 0.4 mg Vital Signs 08/09/16 08/09/16 08/09/16 16:30 17:39 20:00 Temperature 97.6 F 98 F Pulse Rate 86 80 Respiratory 16 16 18 Rate Blood Pressure 152/80 148/79 (mmHg) O2 Sat by Pulse 100 100 Oximetry 08/09/16 08/09/16 08/10/16 20:43 23:42 07:27 Temperature 98.4 F 98.6 F 97.9 F Pulse Rate 90 83 81 Respiratory 16 18 16 Rate Blood Pressure 135/67 142/73 136/74 (mmHg) O2 Sat by Pulse 100 98 100 Oximetry 08/10/16 08:00 Temperature Pulse Rate Respiratory 16 Rate Blood Pressure (mmHg) O2 Sat by Pulse Oximetry Oxygen Devices in Use Now: None Appearance: 76 yo M in NAD, aAOx3, poor historian Eyes: No Scleral Icterus, PERRLA Ears/Nose/Mouth/Throat: NL Teeth, Lips, Gums, Mucous Membranes Moist Neck: NL Appearance and Movements; NL JVP, Trachea Midline Respiratory: Symmetrical Chest Expansion and Respiratory Effort, Clear to Auscultation Cardiovascular: NL Sounds; No Murmurs; No JVD, RRR Abdominal: NL Sounds; No Tenderness; No Distention, No Hepatosplenomegaly Lymphatic: No Cervical Adenopathy Extremities: No Clubbing, Cyanosis, - - +1 pitting pedal edema b/l Skin: No Nodules or Sclerosis, - - venous stasis changes in b/l LES Neurological: Alert and Oriented x 3, - - R facial droop Result Diagrams: 08/10/16 07:20 08/10/16 07:20 Microbiology and Other Data: Microbiology 08/09/16 18:15 Stool Occult Blood (MARY CARMEN) - Final Stool Assess/Plan/Problems-Billing Assessment: 76 yo M with h/o BPH, 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 Thomas) presents with urinary retention - Patient Problems (1) Urinary retention due to benign prostatic hyperplasia Comment: suspect BPH, although further outpatient eval by urology is warranted. appreciate Urology consult. spoke with Destinee Christopher today and Qshift sumner flushes were recommended Cont Sumner to gravity 3 L of urine residual obtained in ED cont Flomax/Proscar (2) Hematuria Comment: post traumatic, resolving slowly, cont Sumner flushes (3) Dyslipidemia Comment: cont statin (4) Macrocytic anemia Comment: appears to be due to chronic kidney disease. Also pt admits to drinking 1.5 bottle of wine a day. Pancytopenia is most likely related to chronic ETOH abouse. He has hematuria, but it appears disproportional to concurrent anemia. tx with a dose of Epogen on 08/07/15 s/p 3 u PRBC transfused with appropiate raise in Hb Appreciate hematology ( Dr. Coates) consult. SPEP pending stool guaiac neg (5) Acute renal failure Comment: suspect underlying CKD improving due to acute obstruction renal US showed distended bladder and pelviectasis Sumner flushed on 08/08/16 with good urine output. (6) Pancytopenia Comment: likely due to chronic ETOH use Vit B12>400 (7) TSH elevation Comment: mild, with normal FT4 Labs to be repeated in 4 weeks. (8) Hypomagnesemia Comment: suspect due to ETOH use replacing PO/IV (9) Alcohol abuse Comment: counseled aboout the harms of ETOH abuse. SW consult pending No symptoms of withdrawal (10) DVT prophylaxis Comment: heparin sc held due to hematuria SCD's Status and Disposition: inpatient for acute renal failure, anemia. Plan to d/c to [facility] on Friday
[2016-08-10 16:14] LABS: Albumin 2.5 g/dL (3.4-4.7); Gamma Globulin 1.1 g/dL (0.6-1.6); Total Protein(PEP) 5.2 g/dL (6.3 - 7.9)
[2016-08-11 06:04] LABS: Hematocrit 25 % (42-52); Hemoglobin 8.3 g/dl (14.0-18.0); Mean Corpuscular HGB Conc 34 g/dl (31-36); Mean Corpuscular Hemoglobin 32 pg (27-31); Mean Corpuscular Volume 94 fL (80-94); Mean Platelet Volume 8 um3 (7.4-10.4); Red Blood Count 2.65 10^6/ul (4.0-5.4); Red Cell Distribution Width 15 % (10.5-15); White Blood Count 4.2 10^3/ul (3.5-10.8)
[2016-08-11 06:18] LABS: BUN/Creatinine Ratio 13.2 (8-20); Calcium 8.4 mg/dL (8.6-10.3); EGFR African American 61.5 (>60); EGFR Non-African American 47.8 (>60); Magnesium 1.9 mg/dL (1.9-2.7); Potassium 3.8 mmol/L (3.5-5.0)
[2016-08-11] MEDS: Tamsulosin CAP* 0.4 MG PO SCH (10:01)
[2016-08-11] MEDS: Atorvastatin* 20 MG TAB PO SCH (10:01)
[2016-08-11] MEDS: Finasteride TAB* 5 MG PO SCH (10:01)
[2016-08-11] MEDS: Magnesium Oxide TAB* 400 MG PO SCH ×2 (10:01→20:48)
--- NOTE | 2016-08-11 14:49 | PN ---
Subjective Date of Service: 08/11/16 Interval History: Hematuria appears to have resolved. Pt feels well, no new complaints Objective Active Medications: Acetaminophen (Tylenol Tab*) 650 mg PO Q4H PRN PRN Reason: FEVER/PAIN Atorvastatin Calcium (Lipitor*) 20 mg PO DAILY [facility] Last Admin: 08/11/16 10:01 Dose: 20 mg Finasteride (Proscar Tab*) 5 mg PO DAILY [facility] Last Admin: 08/11/16 10:01 Dose: 5 mg Magnesium Oxide (Magox 400 Tab*) 800 mg PO BID [facility] Last Admin: 08/11/16 10:01 Dose: 800 mg Tamsulosin HCl (Flomax Cap*) 0.4 mg PO DAILY [facility] Last Admin: 08/11/16 10:01 Dose: 0.4 mg Vital Signs 08/10/16 08/10/16 08/10/16 15:22 20:00 23:28 Temperature 98.0 F 98.1 F Pulse Rate 78 95 Respiratory 16 20 18 Rate Blood Pressure 137/75 127/68 (mmHg) O2 Sat by Pulse 100 99 Oximetry 08/11/16 08/11/16 07:27 08:00 Temperature 98.1 F Pulse Rate 82 Respiratory 16 16 Rate Blood Pressure 146/75 (mmHg) O2 Sat by Pulse 97 Oximetry Oxygen Devices in Use Now: None Appearance: 76 yo M in nAd, aAAOx3, por historian Eyes: No Scleral Icterus, PERRLA Ears/Nose/Mouth/Throat: NL Teeth, Lips, Gums, Mucous Membranes Moist Neck: NL Appearance and Movements; NL JVP, Trachea Midline Respiratory: Symmetrical Chest Expansion and Respiratory Effort, Clear to Auscultation Cardiovascular: NL Sounds; No Murmurs; No JVD, RRR Abdominal: NL Sounds; No Tenderness; No Distention, No Hepatosplenomegaly Lymphatic: No Cervical Adenopathy Extremities: No Clubbing, Cyanosis, - - b/l LE's edema +1 Skin: No Rash or Ulcers, No Nodules or Sclerosis Neurological: - - r facial droop, no other focal neuro deficits Result Diagrams: 08/11/16 05:51 08/11/16 05:51 Microbiology and Other Data: Microbiology 08/09/16 18:15 Stool Occult Blood (MARY CARMEN) - Final Stool Assess/Plan/Problems-Billing Assessment: 76 yo M with h/o BPH, 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 Thomas) presents with urinary retention - Patient Problems (1) Urinary retention due to benign prostatic hyperplasia Comment: suspect BPH. appreciate Urology consult. Cont Sumner to gravity, f/u as outpatient 3 L of urine residual obtained in ED cont Flomax/Proscar (2) Hematuria Comment: post traumatic, resolving slowly. D/c sumner flushes (3) Dyslipidemia Comment: cont statin (4) Macrocytic anemia Comment: appears to be due to chronic kidney disease. Also pt admits to drinking 1.5 bottle of wine a day. Pancytopenia is most likely related to chronic ETOH abouse. He had hematuria, but it appears disproportional to concurrent anemia. tx with a dose of Epogen on 08/07/15 s/p 3 u PRBC transfused with appropiate raise in Hb Appreciate hematology ( Dr. Coates) consult. SPEP unremarkable stool guaiac neg (5) Acute renal failure Comment: suspect underlying CKD improving due to acute obstruction renal US showed distended bladder and pelviectasis Sumner flushed on 08/08/16 with good urine output. (6) Pancytopenia Comment: likely due to chronic ETOH use Vit B12>400 improving (7) TSH elevation Comment: mild, with normal FT4 Labs to be repeated in 4 weeks. (8) Hypomagnesemia Comment: suspect due to ETOH use replacing PO (9) Alcohol abuse Comment: counseled aboout the harms of ETOH abuse. SW consult pending No symptoms of withdrawal (10) DVT prophylaxis Comment: heparin sc held due to hematuria SCD's Status and Disposition: inpatient for acute renal failure, anemia. Plan to d/c to STR on Friday
[2016-08-12] MEDS: Finasteride TAB* 5 MG PO SCH (08:22)
[2016-08-12] MEDS: Atorvastatin* 20 MG TAB PO SCH (08:22)
[2016-08-12] MEDS: Tamsulosin CAP* 0.4 MG PO SCH (08:22)
[2016-08-12] MEDS: Magnesium Oxide TAB* 400 MG PO SCH ×2 (08:22→20:23)
--- NOTE | 2016-08-12 09:28 | PN ---
Progress Note - Progress Note SOAP: Subjective: []Doing well. Has sumner, still not walking much. Waiting for legs to get better. Eating well and otherwise feeling well. Active Medications Generic Name Dose Route Start Last Admin Trade Name René PRN Reason Stop Dose Admin Acetaminophen 650 mg 08/06/16 18:09 Tylenol Tab* PO Q4H PRN FEVER/PAIN Atorvastatin Calcium 20 mg 08/07/16 09:00 08/12/16 08:22 Lipitor* PO 20 mg DAILY [facility] Administration Finasteride 5 mg 08/07/16 09:00 08/12/16 08:22 Proscar Tab* PO 5 mg DAILY [facility] Administration Magnesium Oxide 800 mg 08/09/16 21:00 08/12/16 08:22 Magox 400 Tab* PO 800 mg BID [facility] Administration Tamsulosin HCl 0.4 mg 08/07/16 09:00 08/12/16 08:22 Flomax Cap* PO 0.4 mg DAILY [facility] Administration Objective: [] Vital Signs Temp Pulse Resp BP Pulse Ox 99.0 F 78 16 133/64 98 08/12/16 07:57 08/12/16 07:57 08/12/16 08:00 08/12/16 07:57 08/12/16 07:57 HEENT - pale, no thrush CTA RRR S1S2 +BS, no spleen, non tender Ext w/o edema sumner with yellow urine Epo 73 and Adj Retic 0.7% Assessment: []Pancytopenia and moderate erythropoietin response. I do not think anemia is primarily from renal insufficiency and ddx is alcohol suppression with or without MDS. Discussed with patient, natural history of MDS, risk of progression and leukemia. We decided to check bone marrow biopsy. Plan: []1. Bone marrow biopsy. 2. No transfusions 3. Discussed staying off all forms of alcohol. 4. Will need follow up in our office after discharge. Does not need to stay in hospital for results of bone marrow.
--- NOTE | 2016-08-12 11:13 | PN ---
Subjective Date of Service: 08/12/16 Interval History: Patient seen this morning. Had BMBx done, no issues. Denies any pain. Reports maybe very mild SOB. Eating and drinking well. Family History: Unchanged from Admission Social History: Unchanged from Admission Past Medical History: Unchanged from Admission Objective Active Medications: Acetaminophen (Tylenol Tab*) 650 mg PO Q4H PRN Atorvastatin Calcium (Lipitor*) 20 mg PO DAILY [facility] Finasteride (Proscar Tab*) 5 mg PO DAILY [facility] Magnesium Oxide (Magox 400 Tab*) 800 mg PO BID [facility] Tamsulosin HCl (Flomax Cap*) 0.4 mg PO DAILY [facility] Vital Signs 08/11/16 08/11/16 08/11/16 15:26 20:00 23:36 Temperature 97.7 F 98.5 F Pulse Rate 81 81 Respiratory 16 16 18 Rate Blood Pressure 126/66 139/79 (mmHg) O2 Sat by Pulse 100 97 Oximetry 08/12/16 08/12/16 07:57 08:00 Temperature 99.0 F Pulse Rate 78 Respiratory 16 16 Rate Blood Pressure 133/64 (mmHg) O2 Sat by Pulse 98 Oximetry Oxygen Devices in Use Now: None Appearance: Elderly, M, laying in bed in NAD Eyes: No Scleral Icterus Ears/Nose/Mouth/Throat: Mucous Membranes Moist Neck: NL Appearance and Movements; NL JVP Respiratory: Symmetrical Chest Expansion and Respiratory Effort, - - diminished in bases Cardiovascular: NL Sounds; No Murmurs; No JVD, RRR Abdominal: NL Sounds; No Tenderness; No Distention Lymphatic: No Cervical Adenopathy Extremities: No Edema Skin: No Rash or Ulcers Neurological: Alert and Oriented x 3 Lines/Tubes/Other Access: Clean, Dry and Intact Williamson Result Diagrams: 08/11/16 05:51 08/11/16 05:51 Microbiology and Other Data: Assess/Plan/Problems-Billing Assessment: 76 yo M with h/o BPH, 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 Thomas) presents with urinary retention - Patient Problems (1) Urinary retention due to benign prostatic hyperplasia Current Visit: Yes Comment: suspect BPH. appreciate Urology consult. Cont Williamson to gravity, f/u as outpatient cont Flomax/Proscar (2) Hematuria Current Visit: Yes Comment: post traumatic, resolving (3) Pancytopenia Current Visit: Yes Comment: with significant anemia. Likely due to EtOH and possible MDS Appreciate hematology assistance, BMBx done on 08/12, can f/u results as outpatient and follow-up with heme/onc in clinic tx with a dose of Epogen on 08/07/15 s/p 3 u PRBC transfused with appropiate raise in Hb SPEP unremarkable stool guaiac neg (4) Acute renal failure Current Visit: Yes Comment: due to acute obstruction suspect underlying CKD improving, no need to continue monitoring daily renal US showed distended bladder and pelviectasis Williamson flushed on 08/08/16 with good urine output. (5) TSH elevation Current Visit: Yes Comment: mild, with normal FT4 Labs to be repeated in 4 weeks. (6) Alcohol abuse Current Visit: Yes Comment: counseled aboout the harms of ETOH abuse. SW consult appreciated, patient not interested in treatment options at this time No symptoms of withdrawal (7) Hypomagnesemia Current Visit: Yes Comment: suspect due to ETOH use replacing PO (8) Dyslipidemia Current Visit: Yes Comment: cont statin (9) DVT prophylaxis Current Visit: Yes Status: Acute Code(s): [id number] - SNOMED Code(s): 585242827 Comment: heparin sc held due to hematuria SCD's Status and Disposition: inpatient for acute renal failure, anemia. Plan to d/c to STR when bed available
[2016-08-13] MEDS: Magnesium Oxide TAB* 400 MG PO SCH ×2 (09:16→20:19)
[2016-08-13] MEDS: Finasteride TAB* 5 MG PO SCH (09:16)
[2016-08-13] MEDS: Atorvastatin* 20 MG TAB PO SCH (09:16)
[2016-08-13] MEDS: Tamsulosin CAP* 0.4 MG PO SCH (09:16)
--- NOTE | 2016-08-13 14:55 | PN ---
Subjective Date of Service: 08/13/16 Interval History: Patient seen this afternoon. Sitting at the bedside eating lunch. Reports no new symptoms. Anxious to go to rehab. Family History: Unchanged from Admission Social History: Unchanged from Admission Past Medical History: Unchanged from Admission Objective Active Medications: Acetaminophen (Tylenol Tab*) 650 mg PO Q4H PRN PRN Reason: FEVER/PAIN Atorvastatin Calcium (Lipitor*) 20 mg PO DAILY [facility] Last Admin: 08/13/16 09:16 Dose: 20 mg Finasteride (Proscar Tab*) 5 mg PO DAILY [facility] Last Admin: 08/13/16 09:16 Dose: 5 mg Magnesium Oxide (Magox 400 Tab*) 800 mg PO BID [facility] Last Admin: 08/13/16 09:16 Dose: 800 mg Tamsulosin HCl (Flomax Cap*) 0.4 mg PO DAILY [facility] Last Admin: 08/13/16 09:16 Dose: 0.4 mg Vital Signs 08/12/16 08/12/16 08/13/16 15:28 23:59 05:41 Temperature 97.5 F 98.4 F Pulse Rate 74 77 Respiratory 16 18 18 Rate Blood Pressure 143/67 128/65 (mmHg) O2 Sat by Pulse 100 97 Oximetry 08/13/16 08/13/16 05:51 07:38 Temperature 98.3 F Pulse Rate 74 Respiratory 18 17 Rate Blood Pressure 144/70 (mmHg) O2 Sat by Pulse 97 Oximetry Oxygen Devices in Use Now: None Appearance: Elderly, M, sitting in chair in NAD Eyes: No Scleral Icterus Ears/Nose/Mouth/Throat: Mucous Membranes Moist Neck: NL Appearance and Movements; NL JVP Respiratory: Symmetrical Chest Expansion and Respiratory Effort, Clear to Auscultation Cardiovascular: NL Sounds; No Murmurs; No JVD, RRR Abdominal: NL Sounds; No Tenderness; No Distention Lymphatic: No Cervical Adenopathy Extremities: - - Mild tense B/L LE edema Skin: No Rash or Ulcers Neurological: Alert and Oriented x 3 Result Diagrams: 08/11/16 05:51 08/11/16 05:51 Microbiology and Other Data: Assess/Plan/Problems-Billing Assessment: 76 yo M with h/o BPH, 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 Thomas) presents with urinary retention - Patient Problems (1) Urinary retention due to benign prostatic hyperplasia Current Visit: Yes Comment: suspect BPH. appreciate Urology consult. Cont Williamson to gravity, f/u as outpatient cont Flomax/Proscar (2) Hematuria Current Visit: Yes Comment: post traumatic, resolving (3) Pancytopenia Current Visit: Yes Comment: with significant anemia. Likely due to EtOH and possible MDS Appreciate hematology assistance, BMBx done on 08/12, can f/u results as outpatient and follow-up with heme/onc in clinic tx with a dose of Epogen on 08/07/15 s/p 3 u PRBC transfused with appropiate raise in Hb SPEP unremarkable stool guaiac neg (4) Acute renal failure Current Visit: Yes Comment: due to acute obstruction suspect underlying CKD improving, no need to continue monitoring daily renal US showed distended bladder and pelviectasis Williamson flushed on 08/08/16 with good urine output. (5) TSH elevation Current Visit: Yes Comment: mild, with normal FT4 Labs to be repeated in 4 weeks. (6) Alcohol abuse Current Visit: Yes Comment: counseled aboout the harms of ETOH abuse. SW consult appreciated, patient not interested in treatment options at this time No symptoms of withdrawal (7) Hypomagnesemia Current Visit: Yes Comment: suspect due to ETOH use replacing PO (8) Dyslipidemia Current Visit: Yes Comment: cont statin (9) DVT prophylaxis Current Visit: Yes Status: Acute Code(s): VCR3444 - SNOMED Code(s): 859097642 Comment: heparin sc held due to hematuria SCD's Status and Disposition: inpatient for acute renal failure, anemia. Plan to d/c to STR when bed available
[2016-08-14 07:51] VITALS: BP 141/71
--- NOTE | 2016-08-14 09:53 | PN ---
Subjective Date of Service: 08/14/16 Interval History: Patient seen this morning. No new issues, awaiting bed. Asking questions about BMBx (which has not resulted yet). Williamson draining clear light yellow urine. Family History: Unchanged from Admission Social History: Unchanged from Admission Past Medical History: Unchanged from Admission Objective Active Medications: Acetaminophen (Tylenol Tab*) 650 mg PO Q4H PRN PRN Reason: FEVER/PAIN Atorvastatin Calcium (Lipitor*) 20 mg PO DAILY [facility] Last Admin: 08/13/16 09:16 Dose: 20 mg Finasteride (Proscar Tab*) 5 mg PO DAILY [facility] Last Admin: 08/13/16 09:16 Dose: 5 mg Magnesium Oxide (Magox 400 Tab*) 800 mg PO BID [facility] Last Admin: 08/13/16 20:19 Dose: 800 mg Tamsulosin HCl (Flomax Cap*) 0.4 mg PO DAILY [facility] Last Admin: 08/13/16 09:16 Dose: 0.4 mg Vital Signs 08/13/16 08/13/16 08/14/16 16:17 23:56 01:28 Temperature 97.7 F 98.6 F Pulse Rate 71 78 Respiratory 16 18 18 Rate Blood Pressure 140/73 133/84 (mmHg) O2 Sat by Pulse 100 98 Oximetry 08/14/16 06:24 Temperature 98.3 F Pulse Rate 81 Respiratory 16 Rate Blood Pressure 141/71 (mmHg) O2 Sat by Pulse 98 Oximetry Oxygen Devices in Use Now: None Appearance: Elderly, M, sitting in chair in NAD Eyes: No Scleral Icterus Ears/Nose/Mouth/Throat: Mucous Membranes Moist Neck: NL Appearance and Movements; NL JVP Respiratory: Symmetrical Chest Expansion and Respiratory Effort, Clear to Auscultation Cardiovascular: NL Sounds; No Murmurs; No JVD, RRR Abdominal: NL Sounds; No Tenderness; No Distention Lymphatic: No Cervical Adenopathy Extremities: - - Mild tense B/L LE edema Skin: No Rash or Ulcers Neurological: Alert and Oriented x 3 Lines/Tubes/Other Access: Clean, Dry and Intact Williamson Result Diagrams: 08/11/16 05:51 08/11/16 05:51 Microbiology and Other Data: Assess/Plan/Problems-Billing Assessment: 76 yo M with h/o BPH, 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 Thomas) presents with urinary retention - Patient Problems (1) Urinary retention due to benign prostatic hyperplasia Current Visit: Yes Comment: suspect BPH. appreciate Urology consult. Cont Williamson to gravity, f/u as outpatient cont Flomax/Proscar (2) Hematuria Current Visit: Yes Comment: post traumatic, resolving (3) Pancytopenia Current Visit: Yes Comment: with significant anemia. Likely due to EtOH and possible MDS Appreciate hematology assistance, BMBx done on 08/12, can f/u results as outpatient and follow-up with heme/onc in clinic tx with a dose of Epogen on 08/07/15 s/p 3 u PRBC transfused with appropiate raise in Hb SPEP unremarkable stool guaiac neg (4) Acute renal failure Current Visit: Yes Comment: due to acute obstruction suspect underlying CKD improving, no need to continue monitoring daily renal US showed distended bladder and pelviectasis Williamson flushed on 08/08/16 with good urine output. (5) TSH elevation Current Visit: Yes Comment: mild, with normal FT4 Labs to be repeated in 4 weeks. (6) Alcohol abuse Current Visit: Yes Comment: counseled aboout the harms of ETOH abuse. SW consult appreciated, patient not interested in treatment options at this time No symptoms of withdrawal (7) Hypomagnesemia Current Visit: Yes Comment: suspect due to ETOH use replacing PO (8) Dyslipidemia Current Visit: Yes Comment: cont statin (9) DVT prophylaxis Current Visit: Yes Status: Acute Code(s): [id number] - SNOMED Code(s): 199710414 Comment: heparin sc held due to hematuria SCD's Status and Disposition: inpatient for acute renal failure, anemia. Plan to d/c to STR when bed available
--- NOTE | 2016-08-14 10:16 | PN ---
Progress Note - Progress Note SOAP: Subjective: []Doing well. Tolerated bone marrow biopsy. Still low endurance. Plan is STR and then would like to live with brother in [place]. Acetaminophen (Tylenol Tab*) 650 mg PO Q4H PRN PRN Reason: FEVER/PAIN Atorvastatin Calcium (Lipitor*) 20 mg PO DAILY [facility] Last Admin: 08/13/16 09:16 Dose: 20 mg Finasteride (Proscar Tab*) 5 mg PO DAILY [facility] Last Admin: 08/13/16 09:16 Dose: 5 mg Magnesium Oxide (Magox 400 Tab*) 800 mg PO BID [facility] Last Admin: 08/13/16 20:19 Dose: 800 mg Tamsulosin HCl (Flomax Cap*) 0.4 mg PO DAILY [facility] Last Admin: 08/13/16 09:16 Dose: 0.4 mg Objective: [] Vital Signs Temp Pulse Resp BP Pulse Ox 98.3 F 81 16 141/71 98 08/14/16 06:24 08/14/16 06:24 08/14/16 06:24 08/14/16 06:24 08/14/16 06:24 HEENT - pale, no thrush CTA RRR S1S2 +BS, no spleen, non tender Ext w/o edema sumner with yellow urine Epo 73 and Adj Retic 0.7% Assessment: []Pancytopenia and moderate erythropoietin response. I do not think anemia is primarily from renal insufficiency and ddx is alcohol suppression with or without MDS. Discussed with patient, natural history of MDS, risk of progression and leukemia. We decided to check bone marrow biopsy. Plan: []1. Bone marrow biopsy pending. 2. Check CBC today 3. Discussed staying off all forms of alcohol. He has talked to social work and will make an effort. 4. 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 Does not need to stay in hospital for results of bone marrow.
[2016-08-14] MEDS: Tamsulosin CAP* 0.4 MG PO SCH (10:49)
[2016-08-14] MEDS: Finasteride TAB* 5 MG PO SCH (10:49)
[2016-08-14] MEDS: Magnesium Oxide TAB* 400 MG PO SCH (10:49)
[2016-08-14] MEDS: Atorvastatin* 20 MG TAB PO SCH (10:49)
[2016-08-14 13:39] LABS: Hematocrit 29 % (42-52); Hemoglobin 9.8 g/dl (14.0-18.0); Mean Corpuscular HGB Conc 34 g/dl (31-36); Mean Corpuscular Hemoglobin 32 pg (27-31); Mean Corpuscular Volume 94 fL (80-94); Mean Platelet Volume 8 um3 (7.4-10.4); Red Blood Count 3.06 10^6/ul (4.0-5.4); Red Cell Distribution Width 16 % (10.5-15); White Blood Count 6.6 10^3/ul (3.5-10.8)
--- NOTE | 2016-08-14 15:03 | DS ---
DATE OF ADMISSION: 08/06/2016. DATE OF DISCHARGE: 08/14/2016. PRIMARY CARE PHYSICIAN: Unknown. PRINCIPAL DISCHARGE DIAGNOSES: Acute renal failure secondary to obstruction, benign prostatic hypertrophy, status post Williamson placement, hematuria, pancytopenia with significant anemia. SECONDARY DIAGNOSES: Diet controlled diabetes, coronary artery disease. CONSULTANTS DURING HOSPITALIZATION: Dr. Anthony Feilpe, Urology; Dr. Chaz Coates, Hematology/Oncology. DISCHARGE MEDICATION REGIMEN: 1. Atorvastatin 20 mg by mouth daily. 2. Flomax 0.4 mg by mouth daily. 3. Finasteride 5 mg by mouth daily. 4. Aspirin 325 mg by mouth daily. 5. [place]-3 fatty acids 1000 mg by mouth daily. 6. Coenzyme Q 400 mg by mouth daily. STUDIES DONE DURING HOSPITALIZATION: 1. Chest x-ray: Impression: Chronic pleural and parenchymal change left hemithorax, no acute findings. 2. Renal ultrasound: Impression: Mild bilateral caliectasis which may be related to distended urinary bladder. The catheter may require irrigation. HISTORY OF PRESENT ILLNESS AND HOSPITAL SUMMARY: Please see the full history and physical by LISA Robison for full details. Briefly, Mr. Escobedo is a 76-year- old man with a past medical history of CAD and alcohol abuse who presented to the hospital after he was sent in by Dr. Felipe for urinary retention. A Williamson was placed and he has 3 liters that drained. He also had some hematuria which was thought to be due to traumatic Williamson insertion. The patient was noted to have acute kidney failure with an initial creatinine of 5.6. This improved after Williamson placement and was trending towards baseline. The patient's hematuria improved after continued Williamson irrigation. The decision was made to leave the Williamson in place. The patient had pancytopenia and fairly significant anemia with his hemoglobin nadiring at 6.0. He received two units of packed red blood cells. He was seen by Dr. Coates for pancytopenia and underwent a bone marrow biopsy. A number of the tests from the bone marrow biopsy are pending at this time; however, under the microscope it seems to be normal cellular bone marrow. The patient was evaluated by physical therapy and it was felt that he would benefit from rehab. He will be transferred to [facility] for further rehabilitation prior to discharge home. His aspirin will be restarted on discharge with his cardiac history. He should follow-up with Dr. Felipe as well as his PCP as an outpatient. Total time spent on this discharge was 45 minutes. This is a summary of the hospitalization. Please see the full medical record for further details. [id number]/CPS #: [id number] MTDD
[2016-08-15 10:38] LABS: FMDS Result Summary Normal
== END 2016-08-14 16:00 | disposition home health service (06) | DRG 683 ==
LOC: ED 14:45 → MED 18:09
PROVIDERS: ADMIT Internal Medicine; ATTEND Hospitalist
PROC: 0T9B70Z Drainage of Bladder with Drainage Device, Via Natural or Artificial Opening (ICD-10-PCS; principal; 2016-08-06)
PROC: 0T2BX0Z Change Drainage Device in Bladder, External Approach (ICD-10-PCS; 2016-08-08)
PROC: 3C1ZX8Z Irrigation of Indwelling Device using Irrigating Substance, External Approach (ICD-10-PCS; 2016-08-08)
PROC: 30233N1 Transfusion of Nonautologous Red Blood Cells into Peripheral Vein, Percutaneous Approach (ICD-10-PCS; 2016-08-08)
PROC: 07DR3ZX Extraction of Iliac Bone Marrow, Percutaneous Approach, Diagnostic (ICD-10-PCS; 2016-08-13)
DX: N17.9 Acute kidney failure, unspecified (principal); D61.818 Other pancytopenia; E11.51 Type 2 diabetes mellitus with diabetic peripheral angiopathy without gangrene; N99.820 Postprocedural hemorrhage of a genitourinary system organ or structure following a genitourinary system procedure; E83.42 Hypomagnesemia; N40.1 Benign prostatic hyperplasia with lower urinary tract symptoms; H91.91 Unspecified hearing loss, right ear; H02.409 Unspecified ptosis of unspecified eyelid; I25.10 Atherosclerotic heart disease of native coronary artery without angina pectoris; Z96.659 Presence of unspecified artificial knee joint; R33.8 Other retention of urine; D53.9 Nutritional anemia, unspecified; N18.9 Chronic kidney disease, unspecified; I12.9 Hypertensive chronic kidney disease with stage 1 through stage 4 chronic kidney disease, or unspecified chronic kidney disease; F10.10 Alcohol abuse, uncomplicated; Y90.9 Presence of alcohol in blood, level not specified; D33.3 Benign neoplasm of cranial nerves; Y84.6 Urinary catheterization as the cause of abnormal reaction of the patient, or of later complication, without mention of misadventure at the time of the procedure; R31.0 Gross hematuria; Z95.5 Presence of coronary angioplasty implant and graft; Z83.3 Family history of diabetes mellitus; Z91.19 Patient's noncompliance with other medical treatment and regimen; Z87.891 Personal history of nicotine dependence; Z79.82 Long term (current) use of aspirin
CPT/HCPCS: 36415; 38220; 38221; 71010; 76775; 80048; 80053; 81003; 81015; 81479; 82272; 82550; 82553; 82570; 82607; 82668; 82728; 82746; 83036; 83540; 83550; 83605; 83615; 83690; 83735; 83880; 84153; 84155; 84165; 84300; 84439; 84443; 84484; 85014; 85018; 85025; 85045; 85060; 85097; 85379; 85610; 85730; 86140; 86850; 86900; 86901; 86922; 88184; 88185; 88187; 88188; 88271; 88275; 88305; 88311; 88313; 90686; 90732; 96365; 99232; 99284; A9270-GY; J0744; J0885; J1644; J3475; P9040